=== PATIENT | female | born 1955 | race Caucasian/White ===

== ENCOUNTER → 2022-09-14 | Outpatient (CLI) | payer BC ==
--- NOTE | 2022-09-14 12:05 | P.SLEEP ---
History of Present Illness DATE: 09/14/2022 CONSULTATION/NEW PATIENT EVALUATION HISTORY OF PRESENT ILLNESS/SLEEP-WAKE EVALUATION: 67-year-old lady had been evaluated in the sleep center for obstructive sleep apnea hypopnea syndrome. Patient had been diagnosed with obstructive sleep apnea in 2003. I so patient last time in 2014. Patient continued to use his CPAP equipment, but CPAP machine was broken and even while using her CPAP machine patient has awakenings from sleep with snoring. Diagnostic sleep study was not done since 2003. SLEEP SCHEDULE: Usually sleep schedule from a 30 p.m. to 3:30 AM on working days and from 10 PM to 6 AM on weekend. FALLING ASLEEP: No problems with falling asleep. DURING SLEEP: Patient has loud snoring, multiple awakenings from sleep with nocturia, dry mouth, grinding teeth, sweating. No history of hypnogogical hallucinations, sleep paralysis, or cataplexy. DURING THE DAY/WAKE STATE: In the morning patient wake up tired. [place] sleepiness scale is significantly increased to 16. Patient takes nap at noontime. PAST MEDICAL HISTORY: Diabetes, hyperlipidemia, acid reflux in the past. PAST SURGICAL HISTORY: Left knee surgery for meniscus problems. MEDICATIONS: Metformin 1000 mg twice a day, meloxicam, glipizide, ozempic, meclizine, medications for cholesterol patient doesn't remember the name. SOCIAL HISTORY: Positive history of smoking in the past for 16 pack years, alcohol consumption occasional. FAMILY HISTORY: Cancer, heart problems, hypertension. REVIEW OF SYSTEMS: Snoring, multiple awakenings from sleep, sleepiness during the day. No fevers. No double vision. No recent chest pain. No shortness of breath. No abdominal pain. No bleeding episodes. No blood in urine. No seizure episodes. PHYSICAL EXAMINATION: GENERAL: A pleasant patient without any distress. VITAL SIGNS: BP 135/87 , HR 85 , RR 16 , weight 240.6 pounds, height 5 foot one third inches, body mass index 46.4 . HEENT: PERRLA, EOMI. Evaluation of oropharynx showed tongue protrudes midline, low position of soft palate Mallampati 4. NECK: Supple. No JVD. Thyroid is not palpable. 16.5 inches in circumference. LUNGS: Clear to percussion and to auscultation. Good air exchange. No wheezing or rhonchi. HEART: S1, S2 regular. No murmurs, gallops or rubs. ABDOMEN: Soft and nontender. Bowel sounds are present. No organomegaly appreciated. Obese EXTREMITIES: No clubbing or cyanosis. BEAD MAKER: Awake, alert, and oriented x3. Cranial nerves 2 to 7 intact. There is no fasciculation or atrophy noted. No focal deficits observed. ASSESSMENT: 1. Loud snoring, multiple awakenings from sleep, sleepiness during the day, extremely low position of soft palate Mallampati 4, wide neck 16.5 inches in circumference, history of obstructive sleep apnea-hypopnea syndrome. Obstructive sleep apnea hypopnea syndrome. 2. Obesity, body mass index 46.4. 3. Diabetes mellitus. 4. Hyperlipidemia. 5 grinding teeth. 6 . Status post tonsillectomy. 7. Status post left knee surgery for meniscus problems. PLAN: 1. Home sleep apnea test for evaluation of patient's breathing during sleep. 2. CPAP/BiPAP titration if sleep study confirms obstructive sleep apnea- hypopnea syndrome. 3. Preferable position during sleep on the side. 4. No driving if patient feels any sleepiness. Patient is aware of civil and criminal liability for unsafe driving. 5. Sleep hygiene with regular sleep time for at least 7.5-8 hours. 6. Watching and losing weight. Thank you very much for referring this patient for consultation. Sincerely, Ezequiel Briones MD, PhD, FAASM. Diplomat of [employer], Sleep Medicine Board by [employer] Evaluation Analyst of [facility] [place] Sleep Note - Sleep Note Sleep Note: Temperature: Pulse Rate: Respiratory Rate: Blood Pressure: SpO2: Height: Weight: BMI: Neck Circumference:
== END ==
LOC: 3 N SLEEP 10:59
PROVIDERS: ATTEND Internal Medicine
DX: G47.33 Obstructive sleep apnea (adult) (pediatric) (principal); E66.9 Obesity, unspecified; E11.9 Type 2 diabetes mellitus without complications; K21.9 Gastro-esophageal reflux disease without esophagitis; E78.5 Hyperlipidemia, unspecified; Z98.890 Other specified postprocedural states; Z99.89 Dependence on other enabling machines and devices; Z79.84 Long term (current) use of oral hypoglycemic drugs; Z87.891 Personal history of nicotine dependence
CPT/HCPCS: 99202

== ENCOUNTER → 2023-02-02 | Outpatient (CLI) | payer BC ==
--- NOTE | 2023-02-02 17:08 | P.PN ---
Subjective DATE: 02/02/2023 FOLLOW UP VISIT. Patient with obstructive sleep apnea hypopnea syndrome return to sleep center for follow-up. Recently patient had sleep study which documented obstructive sleep apnea hypopnea syndrome. Patient was initiated on PAP therapy and today is first after treatment was started. Patient was able to use PAP equipment every night for the whole night. The patient does not have significant problems with the mask, PAP pressure and humidification. [place] sleepiness scale is slightly increased to 11. I checked information from PAP unit. PAP unit pressure 8-13, average pressure 12.0 cm H2O. Usage is 97 % for more then 4 hours, average 7.2 hours per night. Leak is 4.6 l/m, which is in acceptable range. Apnea Hypopnea Index is 0.5, which is normal. MEDICATIONS:1. Metformin 1000 mg twice a day 2. Meloxicam 3. Glipizide 4. Ozempic 5. Meclizine During physical exam: GENERAL: A pleasant patient without any distress. VITAL SIGNS: BP 143/86, HR 75, RR 16, weight 234.4, temperature 97.8, oxygen saturation at room air 96. HEENT: PERRLA, EOMI.low position of soft palate, Mallapati 4 . NECK: Supple. No JVD. LUNGS: Clear to percussion and to auscultation. Good air exchange. No wheezing or rhonchi. HEART: S1, S2 regular. ABDOMEN: Soft and nontender. Obese EXTREMITIES: No clubbing or cyanosis. HOUSING CASE MANAGER: Awake, alert, and oriented x3. No focal deficit. Impressions: 1. Obstructive sleep apnea-hypopnea syndrome. Patient demonstrated great compliance with treatment, benefiting from treatment. 2. Obesity. 3. Diabetes mellitus. 4. Hyperlipidemia. 5. History of grinding teeth. 6. Status post left knee surgery for meniscus problems. 7. Status post tonsillectomy. Plan: 1. Continue using PAP equipment every night for the whole night. 2. To change air filter at least 1-2 times per month. 3. PAP unit should stay lower then position of the head. 4. Advised patient to remove all remaining water from humidifier canister daily and make it dry after each usage. Refill canister with fresh distilled water before each usage. 5. Sleep hygiene with regular time in bed for at least 8 hours. 6. Precautions related to driving. No driving if feel any sleepiness. 7. I will maintain prescription for PAP supplies including mask, tube, filters. 8. Follow up visit in 6 months or earlier if patient has any problems. 9. Watching and losing weight. Thank you very much for allowing me to participate in the management of your patient. Ezequiel Briones MD, PhD, FAASM. Diplomat of [place] [employer], Sleep Medicine Board by [employer] Warehouse Laborer of [facility] [place]
== END ==
LOC: 3 N SLEEP 15:33
PROVIDERS: ATTEND Internal Medicine
DX: G47.33 Obstructive sleep apnea (adult) (pediatric) (principal); E66.9 Obesity, unspecified; E11.9 Type 2 diabetes mellitus without complications; E78.5 Hyperlipidemia, unspecified; G47.63 Sleep related bruxism; Z79.84 Long term (current) use of oral hypoglycemic drugs; Z79.85 Long-term (current) use of injectable non-insulin antidiabetic drugs; Z98.890 Other specified postprocedural states; Z90.89 Acquired absence of other organs; Z99.89 Dependence on other enabling machines and devices
CPT/HCPCS: 99212

== ENCOUNTER → 2023-09-20 | Outpatient (CLI) | payer BC ==
[2023-09-20 11:03] VITALS: BP 136/86; PULSE 96; RESP 18; TEMP 97.7
--- NOTE | 2023-09-20 11:28 | P.PROGSL ---
Subjective DATE: 09/20/2023 FOLLOW UP VISIT. Patient with obstructive sleep apnea hypopnea syndrome return to sleep center for follow-up visit. Information from previous visit have been reviewed. Patient is using PAP equipment every night for the whole night, getting PAP supplies in time. The patient does not have significant problems with the mask, PAP unit and humidification. [place] sleepiness scale is slightly increased to 11. I checked information from PAP unit. PAP unit pressure 8-13, average 11.5 cm H2O. Usage is 100% for more then 4 hours, average 7.25 hours per night. Leak is 5.8 l/m, which is in acceptable range. Apnea Hypopnea Index is perfect 0.5. MEDICATIONS: Ezetimibe, glipizide, meclizine as needed, metformin 1000 mg twice a day, estradiol twice a week, vitamin D3 supplement. During physical exam: GENERAL: A pleasant patient without any distress. VITAL SIGNS: Please see below, weight is 221.8 lbs. HEENT: PERRLA, EOMI.low position of soft palate, Mallapati 4 . NECK: Supple. No JVD. LUNGS: Clear to percussion and to auscultation. Good air exchange. No wheezing or rhonchi. HEART: S1, S2 regular. ABDOMEN: Soft and nontender. Slightly obese EXTREMITIES: No clubbing or cyanosis. BLOCK TESTER: Awake, alert, and oriented x3. No focal deficit. Impressions: 1. Obstructive sleep apnea-hypopnea syndrome. Patient demonstrated great compliance with treatment, benefiting from treatment. 2. Obesity, weight 221.8 pounds, patient lost 13 pounds comparing with previous visit, BMI 42.4. 3. History of grinding teeth. 4. Diabetes mellitus. 5. Hyperlipidemia. 6. Status post left knee surgery for meniscus problems. 7. Status post tonsillectomy. Plan: 1. Continue using PAP equipment every night for the whole night. 2. Sleep hygiene with regular time in bed for at least 7.5-8 hours 3. PAP unit should stay lower then position of the head. 4. Advised patient to remove all remaining water from humidifier canister daily and make it dry after each usage. Refill canister with fresh distilled water before each usage. 5. Watching weight. 6. Precautions related to driving. No driving if feel any sleepiness. 7. I will maintain prescription for PAP supplies including mask, tube, filters. 8. Follow up visit in 6 months or earlier if patient has any problems. Thank you very much for allowing me to participate in the management of your patient. Ezequiel Briones MD, PhD, FAASM. Diplomat of [place] [employer], Sleep Medicine Board by [employer] Shear Grinder Operator Helper of [facility] [place] cc: Moon Victor DO Objective - Vital Signs Vital Signs: Vital Signs Temp 97.7 F 09/20/23 11:02 Pulse 96 09/20/23 11:02 Resp 18 09/20/23 11:02 BP 136/86 09/20/23 11:02 Pulse Ox 96 09/20/23 11:02 FiO2 Intake & Output 09/19/23 09/20/23 09/20/23 18:59 06:59 18:59 Weight 100.471 kg
== END ==
LOC: 3 N SLEEP 10:43
PROVIDERS: ATTEND Internal Medicine
DX: G47.33 Obstructive sleep apnea (adult) (pediatric) (principal); E66.9 Obesity, unspecified; E11.9 Type 2 diabetes mellitus without complications; E78.5 Hyperlipidemia, unspecified; G47.63 Sleep related bruxism; Z98.890 Other specified postprocedural states; Z90.89 Acquired absence of other organs; Z99.89 Dependence on other enabling machines and devices; Z68.41 Body mass index [BMI] 40.0-44.9, adult
CPT/HCPCS: 99212

== ENCOUNTER → 2024-05-16 | Outpatient (CLI) | payer BC | LOC: 3 N SLEEP 14:17 | PROVIDERS: ATTEND Internal Medicine | DX: Z53.9 Procedure and treatment not carried out, unspecified reason (principal) ==